=== PATIENT | male | born 1950 | race Caucasian/White ===

== ENCOUNTER → 2017-05-03 | Outpatient (CLI) | payer MEDICARE, BC ==
[~2017-05-03] VITALS: Ht 177.8 cm; Wt 92.7 kg
[~2017-05-03] MED LIST: ALEVE220 M1 PO; CLARITIN 1010 MG/TAB PO
[2017-05-03 11:00] VITALS: BP 133/86
== END ==
LOC: AMSURD 10:21
DX: I10 Essential (primary) hypertension (principal); Z12.5 Encounter for screening for malignant neoplasm of prostate; N52.03 Combined arterial insufficiency and corporo-venous occlusive erectile dysfunction; Z00.00 Encounter for general adult medical examination without abnormal findings; M19.012 Primary osteoarthritis, left shoulder

== ENCOUNTER → 2018-03-07 | Outpatient (CLI) | payer MEDICARE, OTHER ==
[2017-05-03 11:00] VITALS: BP 133/86
[2018-03-07 11:22] LABS: ALBUMIN 4.4 g/dL (3.5-5.0); BUN/CREATININE RATIO 14.8 (6.0-26.0); CALCIUM 9.8 mg/dL (8.4-10.2); POTASSIUM 4.7 mmol/L (3.6-5.0); TOTAL BILIRUBIN 1.3 mg/dL (0.2-1.3); TOTAL PROTEIN 8.2 g/dL (6.3-8.2)
[2018-03-07 11:46] LABS: URINE COLOR YELLOW
[2018-03-07 11:48] LABS: URINE APPEARANCE CLEAR
[2018-03-07 11:49] LABS: URINE BILIRUBIN NEGATIVE (NEGATIVE); URINE BLOOD 250 ery/uL (NEGATIVE); URINE GLUCOSE NEGATIVE (NEGATIVE); URINE KETONE SMALL (NEGATIVE); URINE LEUKOCYTE ESTERASE NEGATIVE (NEGATIVE); URINE NITRATE NEGATIVE (NEGATIVE); URINE PROTEIN(semi-quant) 1+ mg/dL (NEGATIVE); URINE UROBILINOGEN NORMAL (NORMAL)
[2018-03-07 12:20] LABS: HEMATOCRIT 46.8 % (42.0-52.0); HEMOGLOBIN 15.3 g/dL (13.5-18.0); MEAN CELL VOLUME 91 fl (78-100); MEAN CORPUSCULAR HEMOGLOBIN 30 pg (27-31); MEAN CORPUSCULAR HGB CONC 33 g/dL (33-37); MEAN PLATELET VOLUME 10.8 fl (7.4-10.4); PLATELET COUNT 191 K/mm3 (130-400); RED BLOOD COUNT 5.16 M/mm3 (4.20-5.60); RED CELL DISTRIBUTION WIDTH 13.9 % (11.5-14.5); WHITE BLOOD COUNT 12.4 K/mm3 (4.8-10.8)
[2018-03-07 12:56] LABS: LYMPHOCYTE 10 % (20-51); MONOCYTE 11 % (3-10); NEUTROPHILS 79 % (42-75)
[2018-03-07 13:44] LABS: ERYTHROCYTE SEDIMENTATION RATE 31 mm/hr (0-20)
== END ==
LOC: LAB 10:51
PROVIDERS: Internal Medicine
DX: N13.2 Hydronephrosis with renal and ureteral calculous obstruction (principal); N42.9 Disorder of prostate, unspecified; K59.00 Constipation, unspecified; N28.1 Cyst of kidney, acquired; K76.89 Other specified diseases of liver
CPT/HCPCS: Q9967

== ENCOUNTER → 2018-07-24 | Outpatient (CLI) | payer MEDICARE, OTHER ==
[2017-05-03 11:00] VITALS: BP 133/86
== END ==
LOC: RAD 10:55
DX: M71.21 Synovial cyst of popliteal space [Baker], right knee (principal)

== ENCOUNTER → 2019-06-26 | Outpatient (CLI) | payer MEDICARE, OTHER ==
[2017-05-03 11:00] VITALS: BP 133/86
[2019-06-26 09:12] LABS: EOS # 0.1 (0.04-0.40); EOS % 1.9 % (0.0-4.0); HEMATOCRIT 49.6 % (42.0-52.0); HEMOGLOBIN 15.9 g/dL (13.5-18.0); LYMPH# 1.6 (1.50-4.00); MEAN CELL VOLUME 91 fl (78-100); MEAN CORPUSCULAR HEMOGLOBIN 29 pg (27-31); MEAN CORPUSCULAR HGB CONC 32 g/dL (33-37); MEAN PLATELET VOLUME 10.4 fl (7.4-10.4); MONO # 0.7 (0.20-0.80); NEU # 4.5 (1.40-6.50); PLATELET COUNT 199 K/mm3 (130-400); RED BLOOD COUNT 5.45 M/mm3 (4.20-5.60); RED CELL DISTRIBUTION WIDTH 13.9 % (11.5-14.5); WHITE BLOOD COUNT 6.9 K/mm3 (4.8-10.8)
[2019-06-26 09:28] LABS: POTASSIUM 4.2 mmol/L (3.5-5.1); SODIUM 142 mmol/L (136-145)
[2019-06-26 09:30] LABS: CALCIUM 9.1 mg/dL (8.3-10.5)
[2019-06-26 09:31] LABS: GLUCOSE 121 mg/dL (75-110)
[2019-06-26 09:32] LABS: CARBON DIOXIDE 26 mmol/L (23-31)
[2019-06-26 09:33] LABS: TOTAL BILIRUBIN 0.8 mg/dL (0.2-1.2)
[2019-06-26 09:36] LABS: AST-SGOT 25 U/L (5-34)
[2019-06-26 09:38] LABS: ALT/SGPT 25 U/L (0-55)
[2019-06-26 10:14] LABS: ERYTHROCYTE SEDIMENTATION RATE 6 mm/hr (0-20)
== END ==
LOC: LAB 08:46
PROVIDERS: Internal Medicine
DX: Z12.5 Encounter for screening for malignant neoplasm of prostate (principal); Z12.11 Encounter for screening for malignant neoplasm of colon; E78.2 Mixed hyperlipidemia; N52.03 Combined arterial insufficiency and corporo-venous occlusive erectile dysfunction

== ENCOUNTER 2020-05-16 11:28 | Emergency (ER) | payer MEDICARE, OTHER ==
[~2020-05-16] VITALS: Ht 180.3 cm; Wt 102.3 kg
[2020-05-16 11:48] LABS: URINE APPEARANCE CLEAR; URINE BILIRUBIN NEGATIVE (NEGATIVE); URINE BLOOD 250 ery/uL (NEGATIVE); URINE COLOR YELLOW; URINE GLUCOSE NEGATIVE (NEGATIVE); URINE KETONE NEGATIVE (NEGATIVE); URINE LEUKOCYTE ESTERASE 1+ (NEGATIVE); URINE NITRATE NEGATIVE (NEGATIVE); URINE PROTEIN(semi-quant) NEGATIVE (NEGATIVE); URINE UROBILINOGEN NORMAL (NORMAL)
[2020-05-16 11:49] LABS: URINE MUCUS PRESENT (NOT PRESENT)
[2020-05-16 12:28] LABS: HEMATOCRIT 48.6 % (42.0-52.0); HEMOGLOBIN 15.8 g/dL (13.5-18.0); MEAN CELL VOLUME 91 fl (78-100); MEAN CORPUSCULAR HEMOGLOBIN 30 pg (27-31); MEAN CORPUSCULAR HGB CONC 33 g/dL (33-37); MEAN PLATELET VOLUME 10.7 fl (7.4-10.4); PLATELET COUNT 181 K/mm3 (130-400); RED BLOOD COUNT 5.35 M/mm3 (4.20-5.60); RED CELL DISTRIBUTION WIDTH 13.9 % (11.5-14.5); WHITE BLOOD COUNT 11.5 K/mm3 (4.8-10.8)
[2020-05-16 12:40] LABS: POTASSIUM 4.3 mmol/L (3.5-5.1)
[2020-05-16 12:41] LABS: CALCIUM 9.3 mg/dL (8.3-10.5)
[2020-05-16 12:43] LABS: TOTAL PROTEIN 7.7 g/dL (6.2-8.1)
[2020-05-16 12:47] LABS: LYMPHOCYTE 9 % (20-51); MONOCYTE 5 % (3-10); NEUTROPHILS 86 % (42-75)
[2020-05-16] MEDS ORDERED: CIPRO500 M1 PO (16:05)
[2020-05-16] MEDS ORDERED: NORCO 325 MG-51 TA1 PO (16:05)
[2020-05-16 16:21] VITALS: BP 177/91
== END 2020-05-16 16:26 | disposition home or self-care (01) ==
LOC: ED 11:28
PROVIDERS: Nurse Practitioner
DX: N20.0 Calculus of kidney (principal); Z87.442 Personal history of urinary calculi; Z87.19 Personal history of other diseases of the digestive system
CPT/HCPCS: J1885; J2405; J3010; J7030; Q9967

== ENCOUNTER → 2020-12-09 | Outpatient (CLI) | payer MEDICARE, OTHER ==
[~2020-12-09] MED LIST changes: +CIPRO500 M1 PO; +NORCO 325 MG-51 TA1 PO
[2020-12-09 10:09] LABS: POTASSIUM 4.9 mmol/L (3.5-5.1)
[2020-12-09 10:10] LABS: ALBUMIN 3.8 g/dL (3.4-4.8)
[2020-12-09 10:12] LABS: TOTAL PROTEIN 7.1 g/dL (6.2-8.1)
[2020-12-09 10:14] LABS: TOTAL BILIRUBIN 1.2 mg/dL (0.2-1.2)
[2020-12-09 10:19] LABS: MAGNESIUM 2.23 mg/dL (1.60-2.60)
[2020-12-09 10:26] LABS: URINE APPEARANCE HAZY; URINE COLOR YELLOW; URINE PROTEIN(semi-quant) TRACE mg/dL (NEGATIVE)
[2020-12-09 10:27] LABS: URINE BILIRUBIN NEGATIVE (NEGATIVE); URINE BLOOD TRACE (NEGATIVE); URINE GLUCOSE NEGATIVE (NEGATIVE); URINE KETONE NEGATIVE (NEGATIVE); URINE LEUKOCYTE ESTERASE TRACE (NEGATIVE); URINE NITRATE NEGATIVE (NEGATIVE); URINE UROBILINOGEN NORMAL (NORMAL)
[2020-12-09 10:28] LABS: URINE MUCUS PRESENT (NOT PRESENT)
[2020-12-09 10:30] LABS: EOS # 0.1 (0.04-0.40); EOS % 1.5 % (0.0-4.0); HEMATOCRIT 46.1 % (42.0-52.0); HEMOGLOBIN 14.8 g/dL (13.5-18.0); LYMPH# 1.4 (1.50-4.00); MEAN CELL VOLUME 93 fl (78-100); MEAN CORPUSCULAR HEMOGLOBIN 30 pg (27-31); MEAN CORPUSCULAR HGB CONC 32 g/dL (33-37); MEAN PLATELET VOLUME 10.7 fl (7.4-10.4); MONO # 0.7 (0.20-0.80); NEU # 5.1 (1.40-6.50); PLATELET COUNT 179 K/mm3 (130-400); RED BLOOD COUNT 4.98 M/mm3 (4.20-5.60); RED CELL DISTRIBUTION WIDTH 13.6 % (11.5-14.5); WHITE BLOOD COUNT 7.3 K/mm3 (4.8-10.8)
[2020-12-09 11:17] LABS: ERYTHROCYTE SEDIMENTATION RATE 27 mm/hr (0-20)
== END ==
LOC: LAB 09:18 → RAD 09:18
PROVIDERS: Internal Medicine
DX: N28.1 Cyst of kidney, acquired (principal); E78.2 Mixed hyperlipidemia; N39.0 Urinary tract infection, site not specified; R20.2 Paresthesia of skin
CPT/HCPCS: Q9967

== ENCOUNTER → 2021-01-20 | Outpatient (CLI) | payer MEDICARE, OTHER ==
[2021-01-20 11:38] LABS: URINE APPEARANCE CLEAR; URINE COLOR YELLOW
[2021-01-20 11:39] LABS: URINE BILIRUBIN NEGATIVE (NEGATIVE); URINE BLOOD TRACE (NEGATIVE); URINE GLUCOSE NEGATIVE (NEGATIVE); URINE KETONE NEGATIVE (NEGATIVE); URINE LEUKOCYTE ESTERASE NEGATIVE (NEGATIVE); URINE MUCUS PRESENT (NOT PRESENT); URINE NITRATE NEGATIVE (NEGATIVE); URINE PROTEIN(semi-quant) TRACE mg/dL (NEGATIVE); URINE UROBILINOGEN NORMAL (NORMAL)
== END ==
LOC: LAB 10:55
PROVIDERS: Internal Medicine
DX: N52.9 Male erectile dysfunction, unspecified (principal); R30.9 Painful micturition, unspecified

== ENCOUNTER → 2021-07-07 | Outpatient (CLI) | payer MEDICARE, OTHER | LOC: VAS 10:50 → RAD 11:00 | DX: R22.41 Localized swelling, mass and lump, right lower limb (principal); Z96.651 Presence of right artificial knee joint ==